=== PATIENT | male | born 1985 | race Hispanic/Latino ===

== ENCOUNTER 2020-03-24 00:14 | Emergency (ER) | payer SELFPAY ==
[2020-03-24] MEDS ORDERED: Ibuprofen 800 MG TAB ONE (00:37)
[2020-03-24] MEDS ORDERED: Acetaminophen 325 MG TAB ONE (00:37)
--- NOTE | 2020-03-24 07:50 | RAD ---
Exam: Chest one view HISTORY:Cough. COVID 19 positive Comparison: None FINDINGS: Cardiac silhouette: Normal Aorta: Unremarkable Pulmonary vessels: Normal Costophrenic angles: Clear LUNGS: No masses or consolidation. Pneumothorax: None Osseous abnormalities: None IMPRESSION: No acute cardiopulmonary process.
== END 2020-03-24 00:57 | disposition home or self-care (01) ==
LOC: ERS 00:14
DX: U07.1 COVID-19 (principal)
CPT/HCPCS: 71045

== ENCOUNTER 2020-06-24 10:27 | Outpatient (CLI) | payer OTHER | END 2020-06-24 10:28 | disposition home or self-care (01) | LOC: CTENTCT 10:27 | PROVIDERS: ATTEND Student in an Organized Health Care Education/Training Program | DX: J34.2 Deviated nasal septum (principal) | CPT/HCPCS: 70486 ==

== ENCOUNTER 2020-07-23 14:44 | Outpatient (CLI) | payer OTHER ==
[2020-07-24 11:14] LABS: SARS-CoV-2 PCR by NAA Not Detected (NotDetected)
== END 2020-07-23 14:45 | disposition home or self-care (01) ==
LOC: LABBT 14:44
PROVIDERS: ATTEND Student in an Organized Health Care Education/Training Program
DX: Z01.812 Encounter for preprocedural laboratory examination (principal); J34.2 Deviated nasal septum; J34.3 Hypertrophy of nasal turbinates; R43.0 Anosmia; J34.89 Other specified disorders of nose and nasal sinuses; R06.89 Other abnormalities of breathing; R09.81 Nasal congestion; Z20.822 Contact with and (suspected) exposure to COVID-19
CPT/HCPCS: U0003; U0005

== ENCOUNTER 2020-07-28 06:27 | Day surgery (SDC) | payer OTHER ==
[2020-07-27 10:27] VITALS: BMI 28.8
[2020-07-28] MEDS ORDERED: Fentanyl 250 MCG/5 ML VIAL ONE (06:43)
[2020-07-28] MEDS ORDERED: AFRIN NASAL MIST 15 ML BOT ONE ×2 (07:03→09:48)
[2020-07-28] MEDS ORDERED: Propofol 1,000 MG/100 ML VIAL IV ONE (07:09)
[2020-07-28] MEDS ORDERED: Acetaminophen 500 MG TAB ONE ×2 (07:18→07:19)
[2020-07-28] MEDS ORDERED: Midazolam HCl 2 mg/2 ml Vial ONE (07:18)
[2020-07-28] MEDS ORDERED: Lidocaine 1% PF 5 ML VIAL ONE (08:30)
[2020-07-28] MEDS ORDERED: Glycopyrrolate 0.2 MG/ML 5 ML SYRINGE ONE (08:30)
[2020-07-28] MEDS ORDERED: PROPOFOL 200 MG/20 ML VIAL ONE (08:30)
[2020-07-28] MEDS ORDERED: ePHEDrine Sulfate 50 MG/10 ML VIAL ONE (08:30)
[2020-07-28] MEDS ORDERED: Ondansetron PF 4 MG/2 ML Vial ONE (08:30)
[2020-07-28] MEDS ORDERED: Dexamethasone 20 MG/5 ML VIAL ONE (08:30)
[2020-07-28] MEDS ORDERED: Rocuronium Bromide 10 MG/ML (10ML VIAL) ONE (08:30)
[2020-07-28] MEDS ORDERED: Lidocaine 1% w/Epinephrine 1:100K 20 ML VIAL ONE (10:13)
[2020-07-28] MEDS ORDERED: Bacitracin Zinc Ointment 30 gm TUBE ONE (10:13)
[2020-07-28] MEDS ORDERED: HYDROcodone/Acetaminophen 5/325 mg Tablet ONE (11:27)
== END 2020-07-28 11:59 | disposition home or self-care (01) ==
LOC: SDC 06:27
PROVIDERS: ATTEND Student in an Organized Health Care Education/Training Program
PROC: 09SM0ZZ Reposition Nasal Septum, Open Approach (ICD-10-PCS; principal; 2020-07-28)
PROC: 09N Ear, Nose, Sinus, Release (ICD-10-PCS; principal; 2020-07-28)
PROC: 09BL0ZZ Excision of Nasal Turbinate, Open Approach (ICD-10-PCS; principal; 2020-07-28)
DX: J34.89 Other specified disorders of nose and nasal sinuses (principal); J34.2 Deviated nasal septum; J34.3 Hypertrophy of nasal turbinates; F17.200 Nicotine dependence, unspecified, uncomplicated
CPT/HCPCS: C1889; J1100; J2250; J2405; J2704; J3010

== ENCOUNTER 2021-06-03 16:04 | Emergency (ER) | payer OTHER, SELFPAY ==
[2021-06-03 16:27] LABS: #Basophils 0.1 thou/uL (0.0-0.2); #Eosinphils 0.2 thou/uL (0.0-0.7); #Lymphocytes 2.1 thou/uL (1.20-3.40); #Neutrophils 7.1 thou/uL (1.40-6.50); %Basophils 0.7 % (0.0-1.0); %Lymphocytes 20.3 % (21.0-51.0); %Monocytes 9.4 % (0.0-10.0); %Neutrophils 67.6 % (42.0-75.0); Hemoglobin 16.1 g/dL (14.0-18.0); Mean Corpuscular HGB CONC 34.6 g/dL (32.0-36.0); Mean Corpuscular Hemoglobin 31.5 pg (27.0-31.0); Mean Corpuscular Volume 90.9 fL (78.0-98.0); Mean Platelet Volume 8.9 fL (7.4-10.4); Platelet Count 193 thou/uL (130-400); Red Blood Cell (RBC) Count 5.13 mill/uL (4.70-6.10); White Blood Cell (WBC) Count 10.6 thou/uL (4.8-10.8)
[2021-06-03] MEDS ORDERED: Acetaminophen 500 MG TAB ONE (16:40)
[2021-06-03 16:50] LABS: ALT (SGPT) 50 U/L (8-55); AST (SGOT) 45 U/L (5-34); Albumin 4.8 g/dL (3.5-5.0); Alkaline Phosphatase 103 U/L (40-110); Anion Gap 13 mmol/L (10-20); BUN (Urea Nitrogen) 12 mg/dL (8.9-20.6); Bilirubin, Total 0.6 mg/dL (0.2-1.2); Calc. Creatinine Clearance 0 mL/min (70-130); Calcium 9.6 mg/dL (7.8-10.44); Carbon Dioxide 27 mmol/L (22-29); Chloride 102 mmol/L (98-107); Globulin 2.4 g/dL (2.4-3.5); Glucose 106 mg/dL (70-105); Potassium 3.9 mmol/L (3.5-5.1); Protein, Total 7.2 g/dL (6.0-8.3); Sodium 138 mmol/L (136-145)
[2021-06-03 17:26] LABS: SARS-CoV-2 NAA Rapid Test Not Detected (NotDetected)
== END 2021-06-03 18:00 | disposition home or self-care (01) ==
LOC: ERS 16:04
DX: J06.9 Acute upper respiratory infection, unspecified (principal); Z20.822 Contact with and (suspected) exposure to COVID-19
CPT/HCPCS: 71045; 80053; 83605; 84484; 85025; 93005